=== PATIENT | male | born 1975 | race Caucasian/White ===

== ENCOUNTER 2021-06-17 03:11 | Emergency (ER) | payer SELFPAY ==
[2021-06-17 03:17] VITALS: BP 139/91; PULSE 130; RESP 26; TEMP 36.3; O2SAT 99; BMI 25.8
--- NOTE | 2021-06-17 03:33 | W.ED.ANIMALB ---
HPI - Animal Bite General: Chief Complaint: Animal Bite Stated Complaint: Dog Bite Time Seen by Provider: 06/17/21 03:22 History of Present Illness: HPI narrative: 45-year-old male comes in emergency room he was bit by a dog about 2 hours prior. He has a very large open laceration of the complete severing of the lower lip to the right of the midline. His last tetanus shot was a year ago when he was shot by his [id number]. He gone to another facility previously left after staying there for about an hour or attempting to make transfer arrangements. MD complaint: animal bite Onset (ago): hour(s) Animal: dog Description of animal: household pet and immunizations unknown Mechanism: bite Location: face Location - Extremities: Right: hand Pain description: sharp and constant Associated symptoms: Deny bleeding, chills, cough, diaphoresis, erythema, fever(s), headache(s), numbness, rash, short of breath, syncope, weakness or wound drainage Review of Systems Const: Denies: fever(s), chills or diaphoresis ENMT: Denies: throat pain, ear or mastoid pain, nasal discharge or nasal congestion Card: Denies: syncope Resp: Denies: dyspnea, productive cough or non-productive cough GI: Denies: abdominal pain, nausea, vomiting, hematemesis, coffee ground emesis, diarrhea, constipation, bloating, hematochezia or melena : Denies: flank pain, dysuria, urinary frequency or urinary urgency Skin/Breast: Denies: rash or pruritus Neuro: Denies: headache(s) Physical Exam Const: ORIENTATION/CONSCIOUSNESS: Yes awake, Yes oriented to person, Yes oriented to place and Yes oriented to time HENMT: COMMON NORMALS: normocephalic HEAD & SCALP: normocephalic OTHER: Patient has a large laceration on the lower lip just to the right of the midline. There appears to be a portion of the lip tissue missing. There is a large gaping wound of over an inch wide, with exposure of the underlying muscle tissue tissue. The laceration goes through and through and appears to be actually have some tissue that is devascularized downed through the lower portion of the reflection of the gingival mucosa. There is no active bleeding. No deformity no crepitus no sign of fracture patient able to open and close the jaw without any difficulty related to the mandible itself. Neck/C-Spine: COMMON NORMALS: no JVD Resp: COMMON NORMALS: normal respiratory effort, No retractions, No use of accessory muscles and clear to auscultation bilaterally AUSCULTATION: clear to auscultation bilaterally Cardio: COMMON NORMALS: no JVD, regular rate, regular rhythm and No murmurs present (Cardio) RATE: regular rate RHYTHM: regular rhythm GI: COMMON NORMALS: Soft to palpation and No hepatosplenomegaly present AUSCULTATION: Yes normoactive bowel sounds PALPATION: Yes Soft to palpation, No Tenderness to palpation present (GI), No Guarding due to palpation present (GI) and Yes No hepatosplenomegaly present Extremity: COMMON NORMALS: normal to inspection, capillary refill normal, no clubbing, cyanosis or edema, no calf tenderness and no pedal edema Neuro: SENSORIUM/ORIENTATION: Yes oriented to person, Yes oriented to place and Yes oriented to time Skin: COMMON NORMALS: no rashes or lesions noted GENERAL SKIN EXAM: no rashes or lesions noted and no erythema OTHER: Puncture wound right hand no active bleeding not amenable to suturing Course Vital Signs: Vital signs: Vital Signs Temperature 97.4 F L 06/17/21 03:17 Pulse Rate 102 H 06/17/21 05:31 Respiratory Rate 19 H 06/17/21 05:31 Blood Pressure 135/90 06/17/21 05:31 Pulse Oximetry 97 06/17/21 05:31 MDM - Animal Bite MDM Narrative: Medical decision making narrative: Arrangements made for the patient go to [place]. They live there will be much easier for them. They declined ambulance transport which transport himself instead. Patient was given pain medications wounds were dressed and he is given a gram of Ancef and his tetanus updated discussed with [place] [facility] they are expecting the patient explained to the patient did not want to go by ambulance due to financial reasons insisted on being discharged and will drive himself there. Lab Data: Labs: Lab Results 06/17/21 06/17/21 Range/Units 03:43 03:43 WBC 10.1 H (4.0-10.0) 10^3/ uL RBC 4.14 (4.1-5.3) 10^6/u L Hgb 11.9 (11.7-16.6) g/dL Hct 35.6 L (42.0-52.0) % MCV 86.0 (80-94) fL MCH 28.7 (28.0-34.0) pg MCHC 33.4 (30.0-36.0) g/dL RDW 13.2 (12.1-15.1) % Plt Count 246 (130-400) 10^3/c mm MPV 9.4 (7.4-10.4) fL Neut % (Auto) 83.1 % Lymph % (Auto) 7.2 % Mobile % (Auto) 8.7 % Eos % (Auto) 0.3 % Baso % (Auto) 0.4 % Neut # (Auto) 8.36 H (1.8-7.7) 10^3/u L Lymph # (Auto) 0.7 L (0.8-4.8) 10^3/u L Mobile # (Auto) 0.9 (0.2-0.9) 10^3/u L Eos # (Auto) 0.0 (0.0-0.8) 10^3/u L Baso # (Auto) 0.0 (0.0-0.1) 10^3/u L Nucleated RBC % (a uto) 0 % Nucleated RBCs # 0.0 /100WBC Sodium 134 L (136-145) mmol/L Potassium 4.0 (3.5-5.1) mmol/L Chloride 103 (98-107) mmol/L Carbon Dioxide 22 (22-29) mmol/L Anion Gap 13.0 (5-19) BUN 12 (6-20) mg/dL Creatinine 0.8 (0.7-1.2) mg/dL GFR Calculation 105.5 (90-130) mL/min Glucose 98 (65-115) mg/dL Calculated Osmolal ity 278 L (285-295) mOsm/k g Calcium 8.1 L (8.5-10.5) mg/dL Total Bilirubin 1.1 (0.15-1.2) mg/dL AST 18 (0-40) U/L ALT 16 (0-41) U/L Alkaline Phosphata se 93 (40-130) IU/L Total Protein 6.0 L (6.6-8.7) g/dL Albumin 3.5 (3.5-5.2) g/dL Globulin 2.5 (1.3-4.6) g/dL Discharge Plan Discharge Patient Disposition: Transfer to ED Clinical Impression: Dog bite, Sprain of right shoulder Condition: Stable Discharge Orders: Discharge ED (Routine); Ordered 06/17/21 Ordered By: Omer Esquivel Activity Restrictions/Additional Instructions: Travel directly to [facility] in [place] per private vehicle fluids here declined transfer by ambulance. Labs and x-ray reports given to you to take with you. We have notified the ER there that she will be coming. Do not eat or drink anything before you are seen in the ER in [place]. Coding Level of Care Code ED Sales Operations Lead for Joni Lezama Exam Comprehensive
[2021-06-17] MEDS: ondansetron 2 mg/ML SDV 2 mL 4 MG IVP (03:37)
[2021-06-17] MEDS: morphine 4 mg/mL SDV 1 mL IVP ×3 (03:38→04:53)
[2021-06-17] MEDS: ceFAZolin 1,000 MG in sodium chloride 0.9% (plus) 50 ML 100 MG IV (03:39)
[2021-06-17 03:46] LABS: Basophils % 0.4 %; Eosinophils % 0.3 %; Hematocrit 35.6 % (42.0-52.0); Hemoglobin 11.9 g/dL (11.7-16.6); Lymphocytes # 0.7 10^3/uL (0.8-4.8); Lymphocytes % 7.2 %; Mean Corpuscular HGB Conc 33.4 g/dL (30.0-36.0); Mean Corpuscular Hemoglobin 28.7 pg (28.0-34.0); Mean Platelet Volume 9.4 fL (7.4-10.4); Monocytes # 0.9 10^3/uL (0.2-0.9); Monocytes % 8.7 %; Neutrophils # 8.36 10^3/uL (1.8-7.7); Neutrophils % 83.1 %; Nucleated Red Blood Cells % 0 %; Platelet Count 246 10^3/cmm (130-400); Red Blood Count 4.14 10^6/uL (4.1-5.3); Red Cell Distribution Width 13.2 % (12.1-15.1); White Blood Count 10.1 10^3/uL (4.0-10.0)
[2021-06-17 04:06] LABS: Alanine Aminotransferase 16 U/L (0-41); Albumin Level 3.5 g/dL (3.5-5.2); Alkaline Phosphatase 93 IU/L (40-130); Aspartate Amino Transferase 18 U/L (0-40); Blood Urea Nitrogen 12 mg/dL (6-20); Calcium 8.1 mg/dL (8.5-10.5); Carbon Dioxide 22 mmol/L (22-29); Chloride 103 mmol/L (98-107); Globulin 2.5 g/dL (1.3-4.6); Glomerular Filtration Rate 105.5 mL/min (90-130); Glucose 98 mg/dL (65-115); Osmolality Calculated 278 mOsm/kg (285-295); Sodium 134 mmol/L (136-145); Total Bilirubin 1.1 mg/dL (0.15-1.2)
--- NOTE | 2021-06-17 04:44 | XRR_ITS ---
PROCEDURE INFORMATION: Exam: XR Right Shoulder Exam date and time: 06/17/2021 4:44 AM Age: 45 years old Clinical indication: Pain; Shoulder; Right TECHNIQUE: Imaging protocol: XR Right shoulder. Views: 2 or more views. COMPARISON: No relevant prior studies available. FINDINGS: Bones/joints: Normal. Soft tissues: Normal. XR/XR shoulder RT min 2V* [id number] IMPRESSION: No significant abnormality.
--- NOTE | 2021-06-17 05:29 | PC.NURSE ---
Called to give report to Radha King at [facility] at [phone]
--- NOTE | 2021-06-17 05:30 | PC.NURSE ---
Patient left [facility] in POV for [facility] at [phone]
[2021-06-17 05:31] VITALS: BP 135/90; PULSE 102; RESP 19; O2SAT 97
== END 2021-06-17 05:31 ==
PROVIDERS: Emergency Provider Family Medicine
DX: S01.511A Laceration without foreign body of lip, initial encounter (principal); S61.431A Puncture wound without foreign body of right hand, initial encounter; W54.0XXA Bitten by dog, initial encounter
CPT/HCPCS: 73030; 80053; 85025; 96365; 96375; 96376; 99283; J0690; J2270; J2405